=== PATIENT | male | born 1990 ===

== ENCOUNTER 2021-04-14 04:46 | Emergency (ER) | payer OTHER ==
[2021-04-14 05:05] LABS: Absolute Lymphocytes (CBC) 2.1 K/uL (0.7-4.9); Basophils % 0.3 % (0-1.3); Hematocrit 44.7 % (39.6-49.0); Lymphocytes % 16.3 % (15.3-44.8); MPV 9.5 fL (7.6-11.3); RBC Red Blood Cell Count 5.25 M/uL (4.33-5.43)
[2021-04-14] MEDS ORDERED: MORPHINE 4 MG/ML SYR ONE (05:17)
[2021-04-14] MEDS ORDERED: ONDANSETRON 4 MG/2 ML VIAL ONE (05:17)
[2021-04-14] MEDS ORDERED: NA CHLORIDE 0.9% 1,000 ML ONE (05:18)
[2021-04-14 05:26] LABS: ALT/SGPT 14 U/L (12-78); AST/SGOT 12 U/L (15-37); Albumin 3.9 g/dL (3.4-5.0); Alkaline Phosphatase 71 U/L (45-117); BUN Blood Urea Nitrogen 15 mg/dL (7-18); Bicarbonate 30 mmol/L (21-32); Bilirubin Direct 0.2 mg/dL (0-0.2); Bilirubin Total 0.6 mg/dL (0.2-1.0); Glucose Level 107 mg/dL (74-106); Lipase 111 U/L (73-393); Potassium 4.3 mmol/L (3.5-5.1); Protein, Total 7.9 g/dL (6.4-8.2); Sodium Level 139 mmol/L (136-145)
--- NOTE | 2021-04-14 07:10 | ER ---
Nurse's Notes [facility] Name: Deonte Negrete Age: 31 yrs Sex: Male : 1990 Arrival Date: 04/14/2021 Time: 04:46 Bed 5 Private MD: Diagnosis: Upper abdominal pain, unspecified;Duodenitis without bleeding Presentation: 04/14 04:46 Chief complaint: EMS states: Complaining of right upper quadrant abdominal pain that ea radiates to back. N/V, pepto without relief. Coronavirus screen: At this time, the client does not indicate any symptoms associated with coronavirus-19. Ebola Screen: No symptoms or risks identified at this time. Initial Sepsis Screen: Does the patient meet any 2 criteria? No. Patient's initial sepsis screen is negative. Does the patient have a suspected source of infection? No. Patient's initial sepsis screen is negative. Risk Assessment: Do you want to hurt yourself or someone else? Patient reports no desire to harm self or others. Onset of symptoms was April 14, 2021. 04:46 Method Of Arrival: EMS: [facility] ea 04:46 Acuity: CHLOE 3 ea Historical: - Allergies: 04:50 PENICILLINS; ea - Immunization history:: Adult Immunizations up to date. - Social history:: Smoking status: unknown. - Family history:: not pertinent. - Hospitalizations: : No recent hospitalization is reported. Screenin:49 Abuse screen: Denies threats or abuse. Nutritional screening: No deficits noted. ea Tuberculosis screening: No symptoms or risk factors identified. Fall Risk None identified. Assessment: 04:50 General: Appears uncomfortable, Behavior is calm, cooperative, appropriate for age. ea Pain: Complains of pain in right upper quadrant Pain radiates to back. Neuro: Level of Consciousness is awake, alert, obeys commands, Oriented to person, place, time. Cardiovascular: Patient's skin is warm and dry. Respiratory: Airway is patent Respiratory effort is even, unlabored, Respiratory pattern is regular, symmetrical. Derm: Skin is pink, warm \T\ dry. 06:13 Reassessment: Patient and/or family updated on plan of care and expected duration. Pain ea level reassessed. Patient is alert, oriented x 3, equal unlabored respirations, skin warm/dry/pink. Vital Signs: 04:46 BP 152 / 109; Pulse 72; Resp 19; Temp 98.1; Pulse Ox 100% on R/A; ea 06:58 BP 139 / 89; Pulse 74; Resp 18; Pulse Ox 97% on R/A; ea ED Course: 04:46 Patient arrived in ED. ea 04:47 Nadeem Soria MD is Attending Physician. rn 04:49 Triage completed. ea 04:49 Arm band placed on right wrist. Patient placed in an exam room, on a stretcher, on ea pulse oximetry. 04:49 Patient has correct armband on for positive identification. Bed in low position. Call ea light in reach. Side rails up X2. 04:50 Maintain EMS IV. Dressing intact. Good blood return noted. Site clean \T\ dry. Gauge \T\ ea site: 20G LAC. 05:53 CT Abd/Pelvis - IV Contrast Only In Process Unspecified. EDMS 06:13 Annika Chopra RN is Primary Nurse. ea 07:17 No provider procedures requiring assistance completed. IV discontinued, intact, em bleeding controlled, No redness/swelling at site. Pressure dressing applied. Administered Medications: 05:03 Drug: Zofran (Ondansetron) 4 mg Route: IVP; Site: left antecubital; ad5 05:03 Drug: NS 0.9% 1000 ml Route: IV; Rate: 1000 ml; Site: left antecubital; ad5 05:04 Drug: morphine 4 mg {Note: RASS 0.} Route: IVP; Site: left antecubital; ad5 06:55 Drug: Bactrim (trimethoprim-sulfamethoxazole) (160 mg-800 mg (DS) 1 tablet Route: PO; ea 06:55 Drug: Demerol (meperidine) 50 mg Route: IVP; Site: left antecubital; ea Outcome: 07:09 Discharge ordered by . rn 07:21 Discharged to to [facility] em 07:21 Condition: stable 07:21 Discharge instructions given to patient, Instructed on discharge instructions, follow up and referral plans. medication usage, Demonstrated understanding of instructions, follow-up care, medications, Prescriptions given X 3. 07:24 Patient left the ED. em Signatures: Dispatcher [employer] EDNM Victor Manuel Monroy RN RN em Nadeem Soria MD MD rn Antunez, Elena, RN RN luis Hill, Pankaj rogers
--- NOTE | 2021-04-14 07:10 | EDPHYS ---
Physician Documentation [facility] Name: Deonte Negrete Age: 31 yrs Sex: Male : 1990 Arrival Date: 04/14/2021 Time: 04:46 Bed 5 Private MD: ED Physician Nadeem Soria HPI: 04/14 06:55 This 31 yrs old Male presents to ER via EMS with complaints of Abdominal Pain.rn 06:55 The patient presents with abdominal pain. Onset: The symptoms/episode began/occurred 2 rn day(s) ago. The symptoms do not radiate. Associated signs and symptoms: Pertinent positives: nausea and vomiting, anorexia, Pertinent negatives: blood in stools, fever. The symptoms are described as crampy, sharp. Modifying factors: The symptoms are alleviated by nothing, the symptoms are aggravated by touching the area. Severity of pain: At its worst the pain was. 07:04 The patient has not experienced similar symptoms in the past. The patient has not rn recently seen a physician. Reports 2 days of upper abd pain and vomiting. Not improving. No fever. No hx of pancreatitis. No previous abd surgeries. . Historical: - Allergies: 04:50 PENICILLINS; ea - Immunization history:: Adult Immunizations up to date. - Social history:: Smoking status: unknown. - Family history:: not pertinent. - Hospitalizations: : No recent hospitalization is reported. ROS: 07:04 Constitutional: Negative for fever, chills, and weight loss, Eyes: Negative for injury, rn pain, redness, and discharge, Neck: Negative for injury, pain, and swelling, Cardiovascular: Negative for chest pain, palpitations, and edema, Respiratory: Negative for shortness of breath, cough, wheezing, and pleuritic chest pain, Abdomen/GI: + upper abd pain, + nausea/vomiting Back: Negative for injury and pain, : Negative for injury, bleeding, discharge, and swelling, MS/Extremity: Negative for injury and deformity, Skin: Negative for injury, rash, and discoloration, Neuro: Negative for headache, weakness, numbness, tingling, and seizure. Exam: 07:04 Constitutional: This is a well developed, well nourished patient who is awake, alert, rn and in no acute distress. Head/Face: Normocephalic, atraumatic. Eyes: Periorbital areas with no swelling, redness, or edema. Cardiovascular: Regular rate and rhythm. No pulse deficits. Respiratory: No increased work of breathing, no retractions or nasal flaring. Abdomen/GI: soft, + epigastric tenderness, no rebound, neg almanza Skin: Warm, dry MS/ Extremity: Pulses equal, no cyanosis. Neuro: Awake and alert, GCS 15 Vital Signs: 04:46 BP 152 / 109; Pulse 72; Resp 19; Temp 98.1; Pulse Ox 100% on R/A; ea 06:58 BP 139 / 89; Pulse 74; Resp 18; Pulse Ox 97% on R/A; ea MDM: 04:47 Patient medically screened. rn 07:04 Differential diagnosis: cholecystitis, Cholelithiasis, gastritis, gastroesophageal rn reflux disease, non-specific abd pain, pancreatitis, Peptic Ulcer Disease, enteritis. Data reviewed: vital signs, nurses notes, lab test result(s), radiologic studies, CT scan, and as a result, I will discharge patient. Counseling: I had a detailed discussion with the patient and/or guardian regarding: the historical points, exam findings, and any diagnostic results supporting the discharge/admit diagnosis, lab results, radiology results, the need for outpatient follow up, to return to the emergency department if symptoms worsen or persist or if there are any questions or concerns that arise at home. Response to treatment: the patient's symptoms have markedly improved after treatment, and as a result, I will discharge patient. Special discussion: I discussed with the patient/guardian in detail that at this point there is no indication for admission to the hospital. It is understood, however, that if the symptoms persist or worsen the patient needs to return immediately for re-evaluation. ED course: Pain improved, no longer vomiting. CT shows duodenitis vs pancreatitis, lipase normal, will dc with diagnosis of duodenitis, abx, prn pain meds, and nausea medication.. 04/14 04:53 Order name: Basic Metabolic Panel; Complete Time: 05: rn 04/14 04:53 Order name: CBC with Diff; Complete Time: 05:13 rn 04/14 04:53 Order name: Hepatic Function; Complete Time: : rn 04/14 04:53 Order name: Lipase; Complete Time: : rn 04/14 04:53 Order name: CT Abd/Pelvis - IV Contrast Only rn 04/14 04:53 Order name: IV Saline Lock; Complete Time: 04:56 rn 04/14 04:53 Order name: Labs collected and sent; Complete Time: 05:04 rn Administered Medications: 05:03 Drug: Zofran (Ondansetron) 4 mg Route: IVP; Site: left antecubital; ad5 05:03 Drug: NS 0.9% 1000 ml Route: IV; Rate: 1000 ml; Site: left antecubital; ad5 05:04 Drug: morphine 4 mg {Note: RASS 0.} Route: IVP; Site: left antecubital; ad5 06:55 Drug: Bactrim (trimethoprim-sulfamethoxazole) (160 mg-800 mg (DS) 1 tablet Route: PO; ea 06:55 Drug: Demerol (meperidine) 50 mg Route: IVP; Site: left antecubital; ea Disposition: 04/14/21 07:09 Discharged to Home. Impression: Upper abdominal pain, unspecified, Duodenitis without bleeding. - Condition is Stable. - Discharge Instructions: Abdominal Pain, Adult, Duodenitis. - Prescriptions for Zofran ODT 4 mg Oral tablet,disintegrating - place 1 tablet by TRANSLINGUAL route every 8 hours As needed; 20 tablet. Tramadol 50 mg Oral Tablet - take 1 tablet by ORAL route every 8 hours as needed; 15 tablet. Bactrim DS 800- 160 mg Oral Tablet - take 1 tablet by ORAL route every 12 hours for 10 days; 20 tablet. - Medication Reconciliation Form, Thank You Letter, Antibiotic Education, Prescription Opioid Use form. - Follow up: Private Physician; When: As needed; Reason: Recheck today's complaints, Re-evaluation by your physician. - Problem is new. - Symptoms have improved. Signatures: Dispatcher [employer] Victor Manuel Galaviz RN RN em Nieto, Roman, MD MD rn Antunez, Elena, RN RN ea Davidson, Andrea ad5 Corrections: (The following items were deleted from the chart) 07:24 07:09 04/14/2021 07:09 Discharged to Home. Impression: Upper abdominal pain, em unspecified; Duodenitis without bleeding. Condition is Stable. Forms are Medication Reconciliation Form, Thank You Letter, Antibiotic Education, Prescription Opioid Use. Follow up: Private Physician; When: As needed; Reason: Recheck today's complaints, Re-evaluation by your physician. Problem is new. Symptoms have improved. rn
[2021-04-14] MEDS ORDERED: SMZ./TMP. 800/160 MG TABLET ONE (07:11)
[2021-04-14] MEDS ORDERED: MEPERIDINE HCL 50 MG/ML ONE (07:11)
[2021-04-14 07:29] VITALS: TEMP 98.1
[2021-04-14 07:32] VITALS: BP 139/89; O2SAT 97
--- NOTE | 2021-04-14 10:29 | RAD REPORT ---
EXAM DESCRIPTION: CT - Abdomen Pelvis W Contrast - 04/14/2021 6:48 am CLINICAL HISTORY: The patient is 31 years old and is Male; upper abd pain TECHNIQUE: Axial computed tomography images of the abdomen and pelvis with intravenous contrast. S agittal and coronal reformatted images were created and reviewed. This CT exam was performed using one or more of the following dose reduction techniques: automated exposure control, adjustment of t he mA and/or kV according to patient size, and/or use of iterative reconstruction technique. COMPARISON: No relevant prior studies available. FINDINGS: Limitations: Evaluation is limited by a paucity of intra-abdominal fat. Lung bases: Unremarkable. No mass. No consolidation. ABDOMEN: Liver: Unremarkable. No mass. Gallbladder and bile ducts: Unremarkable. No calcified stones. No ductal dilation. Pancreas: See below. Spleen: Unremarkable. No splenomegaly. Adrenals: Unremarkable. No mass. Kidneys and ureters: 1 cm simple cyst in left kidney. ACR White Paper guidelines (Herbonny, et al. JACR 2018; 15(2):264-273) suggest no follow-up is necessary. No hydronephrosis. Stomach and bowel: There is the suggestion of fat stranding in the vicinity of the proximal duod enum and pancreas. There is mild distention of the small bowel in the left upper quadrant. No mucosal thickening. PELVIS: Appendix: No findings to suggest acute appendicitis. Bladder: The bladder is distended. Reproductive: Unremarkable as visualized. ABDOMEN and PELVIS: Intraperitoneal space: Unremarkable. No free air. No significant fluid collection. Bones/joints: No acute fracture. No dislocation. Soft tissues: See above. Vasculature: Unremarkable. No abdominal aortic aneurysm. Lymph nodes: Unremarkable. No enlarged lymph nodes. IMPRESSION: There is the suggestion of fat stranding in the vicinity of the proximal duodenum and pa ncreas. Correlate with any concern for pancreatitis or enteritis. Electronically signed by: Herminio Coley MD 04/14/2021 6:35 AM CDT Due to temporary technical issues with the PACS/Fluency reporting system, reports are being signed by the in house radiologist without review as a courtesy to ensure prompt reporting. The interpreting r adiologist is fully responsible for the content of the report.
== END 2021-04-14 07:24 | disposition home or self-care (01) ==
LOC: ER 04:46
DX: K29.80 Duodenitis without bleeding (principal); Z88.0 Allergy status to penicillin
CPT/HCPCS: 85025; 80048; 36415; 80076; 83690; 74177; 96375; 96374; 99284; Q9967; J2405; J2175; J7030